=== PATIENT | male | born 1935 | race Caucasian/White ===

== ENCOUNTER 2016-08-09 08:08 | Day surgery (SDC) | payer MEDICARE, BC ==
--- NOTE | 2016-08-08 12:52 | PCM.PREANE ---
Preanesthetic Assessment - ANESTHESIA/TRANSFUSION/FAMILY HX Anesthesia/Transfusion History: Prior Anesthesia Family History of Anesthesia Reaction: No - REVIEW OF SYSTEMS Constitutional: Reports: no symptoms ONLINE BANKING SPECIALIST: Reports: no symptoms Respiratory: Reports: no symptoms Cardiovascular: Reports: no symptoms GI: Reports: no symptoms Other: Reports: none - PHYSICAL ASSESSMENT Height: 5 ft 11 in Weight: 81.193 kg ASA Class: 3 Mental Status: alert & oriented x3 Airway Class: Mallampati = 2 Dentition: Reports: missing tooth/teeth Thyro-Mental Finger Breadths: 3 Mouth Opening Finger Breadths: 3 ROM/Head Extension: full Respiratory Status: lungs clear to auscultation bilaterally Cardiovascular Status: normal S1, S2, no murmur, blood pressure WNL, irregular pulse - ALLERGIES Allergies/Adverse Reactions: Allergies Allergy/AdvReac Type Severity Reaction Status Date / Time No Known Allergies Allergy Verified 12/09/15 15:21 - ANESTHESIA PLAN Anesthesia Type Planned: MAC - ACKNOWLEDGEMENTS Pt an appropriate candidate for the planned anesthesia: Yes Alternatives and risks of anesthesia discussed w pt/guardian: Yes Pt/Guardian understands and agree with anesthesia plan: Yes PreAnesthesia Questionnaire HEENT History: Reports: Hard of hearing, Impaired vision, Other (see below) Other HEENT History: wears glasses, top and bottom denture, joe hearing aids Cardiovascular History: Reports: Hypertension, Other (see below) (Questionable Hx of A-fib and sick sinus syndrome. 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 over a few years.) Psychiatric History: Reports: Anxiety Endocrine/Metabolic History: Reports: None Hematologic History: Reports: None Immunologic History: Reports: None Oncologic (Cancer) History: Reports: Basal cell carcinoma Dermatologic History: Reports: None - Infectious Disease History Infectious Disease History: Reports: None - Past Surgical History Head Surgeries/Procedures: Reports: None GI Surgical History: Reports: Colonoscopy Other Male Surgeries/Procedures: hx prostate surgery Dermatological Surgical History: Reports: Skin biopsy - SUBSTANCE USE Smoking Status *Q: Former Smoker Tobacco Use Within Last Twelve Months: Cigarettes Recreational Drug Use History: No - HOME MEDS Home Medications: Home Meds Losartan/Hydrochlorothiazide [Losartan-HCTZ 100-25 MG] 1 tab PO ASDIRECTED 12/08 [History] amLODIPine [Norvasc] 1 tab PO ASDIRECTED 12/09/15 [History] clonazePAM [Clonazepam] 1 tab PO TID PRN 12/09/15 [History] Aspirin [[place] Aspirin] 81 mg PO ASDIRECTED 08/05/16 [History] Potassium Chloride [Klor-Con 10] 10 meq PO DAILY 08/05/16 [History] Zolpidem Tartrate 10 mg PO BEDTIME PRN 08/05/16 [History] - CURRENT (IN HOUSE) MEDS Current Meds: Current Medications Lactated Ringer's (Ringers, Lactated) 1,000 mls @ 125 mls/hr IV ASDIRECTED [facility]
[~2016-08-09 08:08] MED LIST: Lactated Ringers 1,000 ML IV SCH; Lidocaine 2% 5 ML SDV ONE; Propofol 200 MG/20 ML SDV ONE; fentaNYL 100 MCG/2 ML SDV ONE
[2016-08-09] MEDS ORDERED: Propofol 200 MG/20 ML SDV ONE (10:36)
[2016-08-09] MEDS ORDERED: Lactated Ringers 1,000 ML IV SCH (11:00)
--- NOTE | 2016-08-09 11:07 | PCM.OPNOTE ---
- General Post-Op/Procedure Note Date of Surgery/Procedure: 08/09/16 Operative Procedure(s): Colonoscopy with cold hepatic flexure polypectomy and cold rectal polypectomy Pre Op Diagnosis: Change in bowel habits. Post-Op Diagnosis: Hepatic flexure polyp. Rectal polyp. Sigmoid diverticulosis. Melanosis coli. Anesthesia Technique: MAC (ASA III) Primary Surgeon: Peng Durbin Operator Coating Furnace: Yaima Queen Condition: Good Free Text/Narrative:: Dictation [id number]
--- NOTE | 2016-08-09 11:19 | PCM.POSTAN ---
POST ANESTHESIA ASSESSMENT - MENTAL STATUS Mental Status: alert, oriented - RESPIRATORY Respiratory Status: respiratory rate WNL, airway patent, O2 saturation stable - CARDIOVASCULAR CV Status: pulse rate WNL, blood pressure stable - GASTROINTESTINAL GI Status: no symptoms - POST OP HYDRATION Hydration Status: adequate & stable
--- NOTE | 2016-08-09 11:20 | PCM48HPAN ---
Post Anesthesia Note - EVALUATION WITHIN 48HRS OF ANESTHETIC Vital Signs in Normal Range: Yes Patient Participated in Evaluation: Yes Respiratory Function Stable: Yes Airway Patent: Yes Cardiovascular Function Stable: Yes Hydration Status Stable: Yes Pain Control Satisfactory: Yes Nausea and Vomiting Control Satisfactory: Yes Mental Status Recovered: Yes
[2016-08-09 12:25] VITALS: BP 116/69
--- NOTE | 2016-08-10 06:24 | OR ---
SURGEON: Peng Durbin M.D. DATE OF PROCEDURE: 08/09/2016 OPERATION PERFORMED: Colonoscopy with cold hepatic flexure polypectomy and cold rectal polypectomy. MANAGER WIRELESS: Dr. Queen. ASA CLASSIFICATION: III. PREOPERATIVE DIAGNOSIS: Change in bowel habits. POSTOPERATIVE DIAGNOSES: 1. Hepatic flexure polyp. 2. Rectal polyp. 3. Small sigmoid diverticulosis. 4. Melanosis coli. DESCRIPTION OF PROCEDURE: The patient was taken to the endoscopy room and positioned on the endoscopy table in the left lateral decubitus position. Time-out was called for appropriate identification of patient and procedure. The colonoscope was inserted into the rectum and advanced with moderate difficulty to the cecum where the colonoscope was retroflexed to visualize the ascending colon from below. The colonoscope was then straightened and slowly withdrawn. One small polyp was encountered in the hepatic flexure and removed with the cold biopsy forceps. The transverse colon, splenic flexure, and descending colon showed no tumors, polyps, diverticula, or angiodysplastic changes. Sigmoid colon demonstrates numerous small diverticula, no stricture, spasm or bleeding was noted. Once the colonoscope was withdrawn to the rectum, it was retroflexed to visualize the anal orifice from above. Again, no tumors or polyps were seen. There were no acute hemorrhoidal changes. The colonoscope was then straightened, the rectum aspirated, and the colonoscope removed. The patient tolerated the procedure well and was taken to recovery room in stable condition. HERRERA PORTER /[id number]
== END 2016-08-09 11:48 | disposition home or self-care (01) ==
LOC: MW.SDS 08:08
PROVIDERS: ATTEND Surgery
DX: D12.3 Benign neoplasm of transverse colon (principal); D12.7 Benign neoplasm of rectosigmoid junction; K57.30 Diverticulosis of large intestine without perforation or abscess without bleeding; K63.89 Other specified diseases of intestine; Z79.82 Long term (current) use of aspirin; Z79.899 Other long term (current) drug therapy; I10 Essential (primary) hypertension; Z78.9 Other specified health status
CPT/HCPCS: 45380; 93005; J3010; J7120; 00810; 88305; J2704

== ENCOUNTER → 2016-08-19 | Outpatient (CLI) | payer MEDICARE, BC | LOC: MW.CHGS 08:00 | PROVIDERS: ATTEND Surgery | DX: D12.6 Benign neoplasm of colon, unspecified (principal); D12.8 Benign neoplasm of rectum | CPT/HCPCS: G0463 ==

== ENCOUNTER → 2016-09-21 | Outpatient (CLI) | payer MEDICARE, BC | LOC: MW.CHGS 08:00 | PROVIDERS: ATTEND Surgery | DX: R10.13 Epigastric pain (principal); R10.9 Unspecified abdominal pain; I10 Essential (primary) hypertension; K57.90 Diverticulosis of intestine, part unspecified, without perforation or abscess without bleeding | CPT/HCPCS: 99214 ==

== ENCOUNTER 2016-12-17 06:32 | Day surgery (SDC) | payer MEDICARE, BC ==
--- NOTE | 2016-12-17 07:05 | PCM.PREANE ---
Preanesthetic Assessment - Anesthesia/Transfusion/Family Hx Anesthesia History: Prior Anesthesia Without Reaction Family History of Anesthesia Reaction: No Transfusion History: No Prior Transfusion(s) Intubation History: Unknown - Review of Systems General: No Symptoms Pulmonary: No Symptoms Cardiovascular: No Symptoms Gastrointestinal: No symptoms Neurological: No Symptoms Other: Reports: None - Physical Assessment O2 Sat by Pulse Oximetry: 97 Respiratory Rate: 16 Vital Signs: Last Vital Signs Temp 36.1 C 12/17/16 06:51 Pulse 52 L 12/17/16 06:51 Resp 16 12/17/16 06:51 BP 140/73 12/17/16 06:51 Pulse Ox 97 12/17/16 06:51 Height: 1.8 m Weight: 83.007 kg ASA Class: 2 Mental Status: Alert & Oriented x3 Airway Class: Mallampati = 2 Dentition: Reports: Dentures (upper and lower) Thyro-Mental Finger Breadths: 3 Mouth Opening Finger Breadths: 3 ROM/Head Extension: Limited/Partial Lungs: Clear to auscultation, Normal respiratory effort Cardiovascular: Regular Rate, Regular Rhythm - Allergies Allergies/Adverse Reactions: Allergies Allergy/AdvReac Type Severity Reaction Status Date / Time No Known Allergies Allergy Verified 10/07/16 10:09 - Blood Blood Available: No - Anesthesia Plan Pre-Op Medication Ordered: None - Acknowledgements Anesthesia Type Planned: MAC Pt an Appropriate Candidate for the Planned Anesthesia: Yes Alternatives and Risks of Anesthesia Discussed w Pt/Guardian: Yes Pt/Guardian Understands and Agrees with Anesthesia Plan: Yes PreAnesthesia Questionnaire HEENT History: Reports: Hard of Hearing, Impaired Vision, Other (See Below) Other HEENT History: wears glasses, top and bottom denture, left hearing aid Cardiovascular History: Reports: Hypertension Respiratory History: Reports: Sleep Apnea Other Respiratory History: does not use CPAP Gastrointestinal History: Reports: Colon Polyp, GERD Other Gastrointestinal History: tubular adenoma of colon, tubular adenoma of rectum Genitourinary History: Reports: Prostate Disorder Musculoskeletal History: Reports: None Neurological History: Psychiatric History: Reports: Anxiety Endocrine/Metabolic History: Reports: None Hematologic History: Reports: None Immunologic History: Reports: None Oncologic (Cancer) History: Reports: Basal Cell Carcinoma Dermatologic History: Reports: None - Infectious Disease History Infectious Disease History: Reports: None - Past Surgical History Head Surgeries/Procedures: Reports: None GI Surgical History: Reports: Colonoscopy Male Surgical History: Reports: TURP-Transurethral Resection of Prostate Other Male Surgeries/Procedures: hx prostate surgery Dermatological Surgical History: Reports: Skin Biopsy - SUBSTANCE USE Smoking Status *Q: Former Smoker Tobacco Use Within Last Twelve Months: Cigarettes Recreational Drug Use History: No - HOME MEDS Home Medications: Home Meds Losartan/Hydrochlorothiazide [Losartan-HCTZ 100-25 MG] 1 tab PO ASDIRECTED 12/08 [History] amLODIPine [Norvasc] 5 mg PO ASDIRECTED 12/09/15 [History] clonazePAM [Clonazepam] 1 tab PO TID PRN 12/09/15 [History] Aspirin [[place] Aspirin] 81 mg PO ASDIRECTED 08/05/16 [History] Potassium Chloride [Klor-Con 10] 10 meq PO DAILY 08/05/16 [History] Zolpidem Tartrate 10 mg PO BEDTIME PRN 08/05/16 [History] Multivitamin [Multivitamins] 1 tab PO DAILY 09/23/16 [History] Ranitidine HCl [Heartburn Relief] 150 mg PO BID 09/23/16 [History] Cholecalciferol (Vitamin D3) [Vitamin D3] 1,000 units PO DAILY 12/13/16 [History ] - CURRENT (IN HOUSE) MEDS Current Meds: Current Medications Hydrocodone Bitart/Acetaminophen ([place] 325-5 Mg) 1 tab PO Q4H PRN PRN Reason: Pain Bupivacaine HCl/Epinephrine Bitart (Marcaine 0.25%/Epinephrine 1:200,000) 10 ml INJECT ONETIME ONE Stop: 12/17/16 08:01 Lactated Ringer's (Ringers, Lactated) 1,000 mls @ 125 mls/hr IV [facility]RECTED [facility] Cefazolin Sodium/Dextrose 2 gm (/ Premix) 50 mls @ 100 mls/hr IV ONETIME ONE Stop: 12/17/16 07:59 Tobramycin/Dexamethasone (Tobradex Ophth Oint) 0 gm EYEBOTH ONETIME ONE Stop: 12/17/16 07:31
[2016-12-17] MEDS ORDERED: Propofol 200 MG/20 ML SDV ONE (07:09)
[2016-12-17] MEDS ORDERED: Lidocaine 2% 5 ML SDV ONE (07:09)
[2016-12-17] MEDS ORDERED: diphenhydrAMINE 50 MG/ML SDV ONE (07:09)
[2016-12-17] MEDS ORDERED: Sodium Chloride 0.9% 20 ML ONE (07:13)
[2016-12-17] MEDS ORDERED: Lactated Ringers 1,000 ML IV SCH (07:15)
[2016-12-17] MEDS ORDERED: Lidocaine 1% 20 ML MDV ONE (07:22)
[2016-12-17] MEDS ORDERED: Bupivacaine 0.25%/EPINEPHrine 1:200,000 10 ML SDV ONE ×2 (07:22→09:06)
[2016-12-17] MEDS ORDERED: Octyl 2-Cyanoacrylate 1 Tube ONE (07:22)
[2016-12-17] MEDS ORDERED: Dexamethasone/Tobramycin 0.1-0.3% Ophth Oint 3.5 GM Tube ONE (07:22)
[2016-12-17] MEDS ORDERED: ceFAZolin 2 GM in Premix Bag 1 BAG IV ONE (07:30)
[2016-12-17] MEDS ORDERED: Dexamethasone/Tobramycin 0.1-0.3% Ophth Oint 3.5 GM Tube EYEBOTH ONE (07:30)
[2016-12-17] MEDS ORDERED: Bupivacaine 0.25%/EPINEPHrine 1:200,000 10 ML SDV INJECT ONE (08:00)
[2016-12-17] MEDS ORDERED: Acetaminophen/HYDROcodone 325-5 MG Tab PO PRN (08:00)
--- NOTE | 2016-12-17 09:46 | PCM48HPAN ---
Post Anesthesia Note - EVALUATION WITHIN 48HRS OF ANESTHETIC Vital Signs in Normal Range: Yes Patient Participated in Evaluation: Yes Respiratory Function Stable: Yes Airway Patent: Yes Cardiovascular Function Stable: Yes Hydration Status Stable: Yes Pain Control Satisfactory: Yes Nausea and Vomiting Control Satisfactory: Yes Mental Status Recovered: Yes - COMMENTS/OBSERVATIONS Free Text/Narrative:: no anesthesia problems. Patient skipped recovery room phase of postoperative care.
[2016-12-17 10:09] VITALS: BP 132/74
--- NOTE | 2016-12-17 15:10 | PCM.OPNOTE ---
- General Post-Op/Procedure Note Date of Surgery/Procedure: 12/17/16 Operative Procedure(s): bilateral brow lift and blepharoplasty for visual obstruction Pre Op Diagnosis: brow ptosis and dermatochamasis of both upper eyelids causing visual obstruction Post-Op Diagnosis: Same Anesthesia Technique: Local, MAC Primary Surgeon: Shahla Gilbert Bank Cashier: Melisa Persaud Complications: None Condition: Good
--- NOTE | 2016-12-22 12:59 | OR ---
SURGEON: BLANE PHILLIPS MD DATE OF PROCEDURE: 12/17/2016 PREOPERATIVE DIAGNOSIS: Brow ptosis and dermatochalasis of both upper eyelids causing visual obstruction. POSTOPERATIVE DIAGNOSIS: Brow ptosis and dermatochalasis of both upper eyelids causing visual obstruction. PROCEDURES: 1. Bilateral brow lift for brow ptosis. 2. Bilateral blepharoplasty of the upper lids for excess skin weighing down lids. ANESTHESIA: Local MAC. PHOTOGRAPHIC MACHINE OPERATOR: KODY Pulido INDICATIONS: Mr. Cr is an 81-year-old gentleman with visual obstruction from the descent of his brow and excess skin of the upper lids causing overhang and visual obstruction. His visual field exams demonstrates significant compromise. Risks and benefits of the treatment for both contributing problems were discussed with him and he was in agreement to proceed. Risks were including, but not limited to, bleeding, infection, damage to underlying or overlying structures, possible need for future interventions and possible scarring. PROCEDURE IN DETAIL: After informed consent was obtained and placed on the chart, the patient was brought to the operating theater and laid in the supine position. After adequate local MAC anesthetic was obtained, the area of the forehead was anesthetized and marked appropriately for 1 cm excision. Once adequately marked, the skin was anesthetized and the area was prepped and draped in normal fashion. A #15 blade was used to dissect through the skin and then Bovie electrocautery for hemostasis on the underlying tissues. Care was taken to protect the underlying neurovascular structures. The skin was excised and after meticulous hemostasis, the wound was approximated with deep 4-0 Monocryl stitches and a running 4-0 subcuticular for the skin. Meticulous approximation was completed and the wound was dressed with Steri-Strips. After this was completed, attention was then paid to the upper eyelids. There was still significant dermatochalasis. The area was marked in the standard fashion for a 1 cm excision of skin. The pinch test was completed to appreciate appropriate tension and closure of the eyelids after excision. Once the markings had been completed, local anesthesia was infiltrated into the area for hemostasis and pain control. Attention was then paid to dissection. A #15 blade was used to dissect through the skin of the upper eyelid and this was removed. Meticulous hemostasis was obtained using Bovie electrocautery for also contraction of the muscle. Once this was completed, the wound was closed using sparse deep Monocryl stitches and a running 6-0 Prolene for the skin. These were Steri-Striped in place. Once adequately closed and dressed, the upper eyelid incision was dressed with TobraDex. All counts and needles were correct at the end of the case. The patient tolerated the procedure well. FOLLOWUP INSTRUCTIONS: The patient will see us in clinic in approximately 1 week, sooner if any problems, questions, or concerns. HEALEXANDER / GERMAN /[id number] MTDD
== END 2016-12-17 10:00 | disposition home or self-care (01) ==
LOC: MW.SDS 06:32
PROVIDERS: ATTEND Plastic Surgery
PROC: 0W020ZZ Alteration of Face, Open Approach (ICD-10-PCS; principal; 2016-12-17)
PROC: 080PXZZ Alteration of Left Upper Eyelid, External Approach (ICD-10-PCS; 2016-12-17)
PROC: 080NXZZ Alteration of Right Upper Eyelid, External Approach (ICD-10-PCS; 2016-12-17)
DX: H02.403 Unspecified ptosis of bilateral eyelids (principal); H02.834 Dermatochalasis of left upper eyelid; H02.831 Dermatochalasis of right upper eyelid; I10 Essential (primary) hypertension; E87.6 Hypokalemia; K21.9 Gastro-esophageal reflux disease without esophagitis; F41.9 Anxiety disorder, unspecified; K59.09 Other constipation; E78.5 Hyperlipidemia, unspecified; Z87.891 Personal history of nicotine dependence; Z79.82 Long term (current) use of aspirin; Z79.899 Other long term (current) drug therapy
CPT/HCPCS: 15823; 67900; A9270; J1200; J7120; 00103; J2704

== ENCOUNTER 2017-07-11 11:30 | Day surgery (SDC) | payer MEDICARE, BC ==
[~2017-07-11 11:30] MED LIST changes: -fentaNYL 100 MCG/2 ML SDV ONE
--- NOTE | 2017-07-11 12:15 | PCM.PREANE ---
Preanesthetic Assessment - Anesthesia/Transfusion/Family Hx Anesthesia History: Prior Anesthesia Without Reaction Family History of Anesthesia Reaction: No Transfusion History: No Prior Transfusion(s) Intubation History: Unknown - Review of Systems General: No Symptoms Pulmonary: No Symptoms Cardiovascular: No Symptoms Neurological: No Symptoms Other: Reports: None - Physical Assessment NPO Status Date: 07/10/17 Height: 1.8 m Weight: 83.915 kg ASA Class: 2 Airway Class: Mallampati = 2 Dentition: Reports: Edentulous ROM/Head Extension: Full Lungs: Clear to Auscultation, Normal Respiratory Effort Cardiovascular: Regular Rate, Regular Rhythm - Allergies Allergies/Adverse Reactions: Allergies Allergy/AdvReac Type Severity Reaction Status Date / Time No Known Allergies Allergy Verified 07/06/17 12:29 - Acknowledgements Anesthesia Type Planned: MAC Pt an Appropriate Candidate for the Planned Anesthesia: Yes Alternatives and Risks of Anesthesia Discussed w Pt/Guardian: Yes Pt/Guardian Understands and Agrees with Anesthesia Plan: Yes PreAnesthesia Questionnaire HEENT History: Reports: Hard of Hearing, Impaired Vision, Other (See Below) Other HEENT History: wears glasses, top and bottom denture, left hearing aid Cardiovascular History: Reports: Hypertension Respiratory History: Reports: None Gastrointestinal History: Reports: Colon Polyp, GERD Other Gastrointestinal History: tubular adenoma of colon, tubular adenoma of rectum Genitourinary History: Reports: Prostate Disorder Musculoskeletal History: Reports: None Neurological History: Psychiatric History: Reports: Anxiety Endocrine/Metabolic History: Reports: None Hematologic History: Reports: None Immunologic History: Reports: None Oncologic (Cancer) History: Reports: Basal Cell Carcinoma Dermatologic History: Reports: None - Infectious Disease History Infectious Disease History: Reports: None - Past Surgical History Head Surgeries/Procedures: Reports: None GI Surgical History: Reports: Colonoscopy Male Surgical History: Reports: TURP-Transurethral Resection of Prostate Other Male Surgeries/Procedures: hx prostate surgery Dermatological Surgical History: Reports: Skin Biopsy - SUBSTANCE USE Smoking Status *Q: Former Smoker Tobacco Use Within Last Twelve Months: Cigarettes Recreational Drug Use History: No - HOME MEDS Home Medications: Home Meds Losartan/Hydrochlorothiazide [Losartan-HCTZ 100-25 MG] 1 tab PO ASDIRECTED 12/08 [History] amLODIPine [Norvasc] 5 mg PO DAILY 12/09/15 [History] clonazePAM [Clonazepam] 1 tab PO TID PRN 12/09/15 [History] Aspirin [[place] Aspirin] 81 mg PO ASDIRECTED 08/05/16 [History] Potassium Chloride [Klor-Con 10] 10 meq PO DAILY 08/05/16 [History] Zolpidem Tartrate 10 mg PO BEDTIME PRN 08/05/16 [History] Multivitamin [Multivitamins] 1 tab PO DAILY 09/23/16 [History] Cholecalciferol (Vitamin D3) [Vitamin D3] 1,000 units PO DAILY 12/13/16 [History ] Omeprazole 40 mg PO DAILY 07/06/17 [History] - CURRENT (IN HOUSE) MEDS Current Meds: Current Medications Lactated Ringer's (Ringers, Lactated) 1,000 mls @ 125 mls/hr IV ASDIRECTED [facility] Last Admin: 07/11/17 12:00 Dose: 125 mls/hr Discontinued Medications Lidocaine (Xylocaine-Mpf 2%) Confirm Administered Dose 5 ml .ROUTE .STK-MED ONE Stop: 07/11/17 11:07 Propofol (Diprivan 20 Ml) Confirm Administered Dose 200 mg .ROUTE .STK-MED ONE Stop: 07/11/17 11:07
[2017-07-11] MEDS ORDERED: Propofol 200 MG/20 ML SDV ONE (12:36)
[2017-07-11] MEDS ORDERED: Midazolam 1 MG/ML 2 ML SDV ONE (12:36)
[2017-07-11] MEDS ORDERED: Lactated Ringers 1,000 ML IV SCH (13:15)
--- NOTE | 2017-07-11 13:15 | PCM.POSTAN ---
POST ANESTHESIA ASSESSMENT - MENTAL STATUS Mental Status: Alert, Oriented - VITAL SIGNS Pulse Rate: 63 SaO2: 97 Resp Rate: 14 Blood Pressure: 102/58 - RESPIRATORY Respiratory Status: Respiratory Rate WNL, Airway Patent, O2 Saturation Stable - CARDIOVASCULAR CV Status: Pulse Rate WNL, Blood Pressure Stable - GASTROINTESTINAL GI Status: No Symptoms - PAIN Pain Score: 0 - POST OP HYDRATION Hydration Status: Adequate & Stable
--- NOTE | 2017-07-11 13:15 | PCM.OPNOTE ---
- General Post-Op/Procedure Note Date of Surgery/Procedure: 07/11/17 Operative Procedure(s): Esophagogastroduodenoscopy with duodenal, gastric and esophageal biopsies Pre Op Diagnosis: Epigastric pain. Intermittent tarry stools. Post-Op Diagnosis: Mild duodenitis, gastritis and esophagitis. No acute ulcerations. Anesthesia Technique: MAC (ASA II) Primary Surgeon: Peng Durbin Condition: Good Free Text/Narrative:: Dictation [id number] CPT CODE [id number]
[2017-07-11 14:13] VITALS: BP 112/66
--- NOTE | 2017-07-11 20:30 | OR ---
SURGEON: Peng Durbin M.D. DATE OF PROCEDURE: 07/11/2017 OPERATION PERFORMED: Esophagogastroduodenoscopy with duodenal, gastric, and esophageal biopsy. ANESTHESIA: MAC. ASA CLASSIFICATION: II. PREOPERATIVE DIAGNOSES: 1. Persistent epigastric pain. 2. Intermittent tarry stools. POSTOPERATIVE DIAGNOSES: 1. Mild duodenitis. 2. Mild gastritis. 3. Mild esophagitis. 4. No ulcerations noted anywhere. DESCRIPTION OF PROCEDURE: The patient was taken to the endoscopy room and positioned on the endoscopy table in the supine position. Time-out was called for appropriate identification of the patient and procedure. Monitored anesthesia care was provided. A bite block was placed between the patient's teeth. The gastroscope was inserted through the bite block into the oropharynx and advanced without difficulty through the esophagus and stomach into the duodenum where examination was carried out in a retrograde fashion. The duodenal bulb does show some mild- to-moderate inflammatory changes. Biopsies were obtained. No acute ulcerations were noted. The gastroscope was then withdrawn through the pylorus into the stomach, which also shows a very mild gastritis. Again, no acute ulcerations were noted. The gastroscope was retroflexed to visualize the proximal stomach. No tumors were noted proximally. No significant hiatal hernia was noted. The gastroscope was then withdrawn carefully visualizing the greater and lesser curvatures. Stomach was aspirated as the scope was withdrawn. The patient does have some mild inflammatory changes at the GE junction. Separate biopsies of this area were obtained. No acute ulcerations were noted. The esophagus demonstrated good contractility. No mid or proximal lesions were identified. The vocal cords were visualized as the scope was withdrawn and noted to move symmetrically. No vocal cord lesions were identified. The gastroscope was then removed with the patient having tolerated the procedure well. He was now taken to recovery room in stable condition. HERRERA / GERMAN /[id number]
== END 2017-07-11 13:38 | disposition home or self-care (01) ==
LOC: MW.SDS 11:30
PROVIDERS: ATTEND Surgery
DX: K29.50 Unspecified chronic gastritis without bleeding (principal); K29.80 Duodenitis without bleeding; K20.9 Esophagitis, unspecified; I10 Essential (primary) hypertension; K21.9 Gastro-esophageal reflux disease without esophagitis; F41.9 Anxiety disorder, unspecified; Z85.828 Personal history of other malignant neoplasm of skin; Z86.010 Personal history of colon polyps; Z79.899 Other long term (current) drug therapy; Z79.82 Long term (current) use of aspirin; Z98.890 Other specified postprocedural states
CPT/HCPCS: 43239; 88305; 88312; J2250; J7120; 00731; J2704

== ENCOUNTER 2018-09-11 09:14 | Day surgery (SDC) | payer MEDICARE, BC ==
[~2018-09-11 09:14] MED LIST changes: -Lidocaine 2% 5 ML SDV ONE; +fentaNYL 100 MCG/2 ML SDV ONE
--- NOTE | 2018-09-11 10:35 | PCM.PREANE ---
Preanesthetic Assessment - Anesthesia/Transfusion/Family Hx Anesthesia History: Prior Anesthesia Without Reaction Family History of Anesthesia Reaction: No Transfusion History: No Prior Transfusion(s) Intubation History: Unknown - Review of Systems General: No Symptoms Pulmonary: No Symptoms Cardiovascular: No Symptoms Neurological: No Symptoms Other: Reports: None - Physical Assessment NPO Status Date: 09/10/18 NPO Status Time: 23:00 O2 Sat by Pulse Oximetry: 96 Respiratory Rate: 16 Vital Signs: Last Vital Signs Temp 97.5 F 09/11/18 09:45 Pulse 60 09/11/18 09:45 Resp 16 09/11/18 09:45 BP 141/80 H 09/11/18 09:45 Pulse Ox 96 09/11/18 09:45 Height: 5 ft 10 in Weight: 83.461 kg ASA Class: 2 Mental Status: Alert & Oriented x3 Airway Class: Mallampati = 2 Dentition: Reports: Normal Dentition ROM/Head Extension: Full Lungs: Clear to Auscultation, Normal Respiratory Effort Cardiovascular: Regular Rate, Regular Rhythm - Allergies Allergies/Adverse Reactions: Allergies Allergy/AdvReac Type Severity Reaction Status Date / Time No Known Allergies Allergy Verified 09/06/18 13:03 - Blood Blood Available: No - Anesthesia Plan Pre-Op Medication Ordered: None - Acknowledgements Anesthesia Type Planned: General Anesthesia, MAC Pt an Appropriate Candidate for the Planned Anesthesia: Yes Alternatives and Risks of Anesthesia Discussed w Pt/Guardian: Yes Pt/Guardian Understands and Agrees with Anesthesia Plan: Yes Additional Comments: PMH: htn, anxiety PLAN: mac/tiva PreAnesthesia Questionnaire HEENT History: Reports: Hard of Hearing, Impaired Vision, Other (See Below) Other HEENT History: wears glasses, top and bottom denture, left hearing aid Cardiovascular History: Reports: Hypertension Respiratory History: Reports: None Gastrointestinal History: Reports: Colon Polyp, GERD Other Gastrointestinal History: tubular adenoma of colon, tubular adenoma of rectum Genitourinary History: Reports: Prostate Disorder Musculoskeletal History: Reports: None Neurological History: Reports: None Psychiatric History: Reports: Anxiety Endocrine/Metabolic History: Reports: None Hematologic History: Reports: None Immunologic History: Reports: None Oncologic (Cancer) History: Reports: Basal Cell Carcinoma Dermatologic History: Reports: None - Infectious Disease History Infectious Disease History: Reports: None - Past Surgical History Head Surgeries/Procedures: Reports: None GI Surgical History: Reports: Colonoscopy, EGD Male Surgical History: Reports: TURP-Transurethral Resection of Prostate Other Male Surgeries/Procedures: hx prostate surgery Neurological Surgical History: Reports: None Dermatological Surgical History: Reports: Skin Biopsy - SUBSTANCE USE Smoking Status *Q: Former Smoker Recreational Drug Use History: No - HOME MEDS Home Medications: Home Meds Losartan/Hydrochlorothiazide [Losartan-HCTZ 100-25 MG] 1 tab PO ASDIRECTED 12/08 [History] amLODIPine [Norvasc] 5 mg PO DAILY 12/09/15 [History] clonazePAM [Clonazepam] 1 tab PO TID PRN 12/09/15 [History] Aspirin [[place] Aspirin EC] 81 mg PO ASDIRECTED 08/05/16 [History] Potassium Chloride [Klor-Con 10] 10 meq PO DAILY 08/05/16 [History] Zolpidem Tartrate 10 mg PO BEDTIME PRN 08/05/16 [History] Multivitamin [Multivitamins] 1 tab PO DAILY 09/23/16 [History] Cholecalciferol (Vitamin D3) [Vitamin D3] 1,000 units PO DAILY 12/13/16 [History ] Omeprazole 40 mg PO DAILY 07/06/17 [History] - CURRENT (IN HOUSE) MEDS Current Meds: Current Medications Lactated Ringer's (Ringers, Lactated) 1,000 mls @ 125 mls/hr IV ASDIRECTED [facility] Last Admin: 09/11/18 10:07 Dose: 125 mls/hr Discontinued Medications Fentanyl (Sublimaze) Confirm Administered Dose 100 mcg .ROUTE .STK-MED ONE Stop: 09/11/18 07:36 Propofol (Diprivan 20 Ml) Confirm Administered Dose 200 mg .ROUTE .STK-MED ONE Stop: 09/11/18 07:35
[2018-09-11] MEDS ORDERED: Propofol 200 MG/20 ML SDV ONE (12:58)
--- NOTE | 2018-09-11 13:25 | PCM.OPNOTE ---
- General Post-Op/Procedure Note Date of Surgery/Procedure: 09/11/18 Operative Procedure(s): Esophagogastroduodenoscopy with biopsy Pre Op Diagnosis: Progressive abdominal pain Post-Op Diagnosis: Acute and chronic gastritis Anesthesia Technique: MAC (ASA II) Primary Surgeon: Peng Durbin Condition: Good Free Text/Narrative:: DICTATION [id number] CPT CODE [id number]
[2018-09-11] MEDS ORDERED: Lactated Ringers 1,000 ML IV SCH (13:30)
--- NOTE | 2018-09-11 14:13 | PCM.POSTAN ---
POST ANESTHESIA ASSESSMENT - MENTAL STATUS Mental Status: Alert, Oriented - RESPIRATORY Respiratory Status: Respiratory Rate WNL, Airway Patent, O2 Saturation Stable - CARDIOVASCULAR CV Status: Pulse Rate WNL, Blood Pressure Stable - GASTROINTESTINAL GI Status: No Symptoms - POST OP HYDRATION Hydration Status: Adequate & Stable
--- NOTE | 2018-09-11 14:13 | PCM48HPAN ---
Post Anesthesia Note - EVALUATION WITHIN 48HRS OF ANESTHETIC Vital Signs in Normal Range: Yes Patient Participated in Evaluation: Yes Respiratory Function Stable: Yes Airway Patent: Yes Cardiovascular Function Stable: Yes Hydration Status Stable: Yes Pain Control Satisfactory: Yes Nausea and Vomiting Control Satisfactory: Yes Mental Status Recovered: Yes Resp Rate: 16
[2018-09-11 15:19] VITALS: BP 143/77
--- NOTE | 2018-09-11 16:02 | OR ---
SURGEON: Peng Durbin M.D. DATE OF PROCEDURE: 09/11/2018 PROCEDURE PERFORMED: Esophagogastroduodenoscopy with biopsy. ANESTHESIA: MAC. ASA CLASSIFICATION: II. PREOPERATIVE DIAGNOSIS: Progressive epigastric pain. POSTOPERATIVE DIAGNOSIS: [id number] acute and chronic gastritis. DESCRIPTION OF PROCEDURE: The patient was taken to the endoscopy room and positioned on the endoscopy table in the supine position. Time-out was called for appropriate identification of the patient and procedure. Monitored anesthesia care was provided. The bite block was placed between the patient's teeth. The gastroscope was inserted through the bite block and advanced without difficulty through the esophagus and stomach into the duodenum, where examination was carried out in a retrograde fashion. The duodenum shows no acute inflammatory changes or ulcerations. Stomach does show [id number] acute gastritis. No ulcerations were noted. No tumors were noted. The antrum was biopsied to rule out the presence of Helicobacter pylori. The gastroscope was then retroflexed to visualize the stomach from below. The greater and lesser curvatures were well visualized and showed no tumors or polyps. No ulcerations were noted. The GE junction was well defined and shows no acute inflammatory changes. The gastroscope was then straightened, the stomach aspirated, and the gastroscope slowly withdrawn. The GE junction again was well defined and shows no acute inflammatory changes or ulcerations. The esophagus demonstrates poor contractility with tertiary contractions, but no significant longitudinal stripping waves. As the scope was withdrawn, the vocal cords were visualized and noted to move symmetrically. The gastroscope was then removed with the patient having tolerated the procedure well. He was taken to recovery room in a stable condition. HERRERA PORTER /[id number]
== END 2018-09-11 14:30 | disposition home or self-care (01) ==
LOC: MW.SDS 09:14
PROVIDERS: ATTEND Surgery
DX: K29.00 Acute gastritis without bleeding (principal); K29.50 Unspecified chronic gastritis without bleeding; K21.9 Gastro-esophageal reflux disease without esophagitis; I10 Essential (primary) hypertension; Z86.010 Personal history of colon polyps; Z87.891 Personal history of nicotine dependence; Z79.82 Long term (current) use of aspirin; Z79.899 Other long term (current) drug therapy
CPT/HCPCS: 43239; J2704; J7120; J3010

== ENCOUNTER 2019-07-20 07:39 | Day surgery (SDC) | payer MEDICARE, BC ==
[~2019-07-20 07:39] MED LIST changes: -Propofol 200 MG/20 ML SDV ONE; -fentaNYL 100 MCG/2 ML SDV ONE
--- NOTE | 2019-07-20 08:52 | PCM.PREANE ---
Preanesthetic Assessment - Anesthesia/Transfusion/Family Hx Anesthesia History: Prior Anesthesia Without Reaction Family History of Anesthesia Reaction: No Transfusion History: No Prior Transfusion(s) Intubation History: Unknown - Physical Assessment NPO Status Date: 07/19/19 Vital Signs: Last Vital Signs Temp 97.9 F 07/20/19 07:59 Pulse 70 07/20/19 07:59 Resp 16 07/20/19 07:59 BP 148/79 H 07/20/19 07:59 Pulse Ox 97 07/20/19 07:59 Height: 5 ft 10 in Weight: 73.482 kg ASA Class: 2 Mental Status: Alert & Oriented x3 Airway Class: Mallampati = 2 Dentition: Reports: Dentures (full, upper and lower) ROM/Head Extension: Limited/Partial Lungs: Clear to Auscultation, Normal Respiratory Effort Cardiovascular: Regular Rate, Regular Rhythm - Allergies Allergies/Adverse Reactions: Allergies Allergy/AdvReac Type Severity Reaction Status Date / Time No Known Allergies Allergy Verified 07/20/19 08:10 - Blood Blood Available: No - Anesthesia Plan Pre-Op Medication Ordered: None - Acknowledgements Anesthesia Type Planned: General Anesthesia Pt an Appropriate Candidate for the Planned Anesthesia: Yes Alternatives and Risks of Anesthesia Discussed w Pt/Guardian: Yes Pt/Guardian Understands and Agrees with Anesthesia Plan: Yes Additional Comments: PMH: htn, frailty PLAN: tiva PreAnesthesia Questionnaire HEENT History: Reports: Hard of Hearing, Impaired Vision, Other (See Below) Other HEENT History: wears glasses, top and bottom denture, left hearing aid Cardiovascular History: Reports: Hypertension Respiratory History: Reports: None Gastrointestinal History: Reports: Colon Polyp, GERD Other Gastrointestinal History: tubular adenoma of colon, tubular adenoma of rectum, GERD in the past Genitourinary History: Reports: Prostate Disorder Musculoskeletal History: Reports: None Neurological History: Reports: None Psychiatric History: Reports: Anxiety Endocrine/Metabolic History: Reports: None Hematologic History: Reports: None Immunologic History: Reports: None Oncologic (Cancer) History: Reports: Basal Cell Carcinoma Dermatologic History: Reports: None - Infectious Disease History Infectious Disease History: Reports: None - Past Surgical History Head Surgeries/Procedures: Reports: None Cardiovascular Surgical History: Reports: None Respiratory Surgical History: Reports: None GI Surgical History: Reports: Colonoscopy, EGD Male Surgical History: Reports: TURP-Transurethral Resection of Prostate Other Male Surgeries/Procedures: hx prostate surgery Endocrine Surgical History: Reports: None Neurological Surgical History: Reports: None Musculoskeletal Surgical History: Reports: None Oncologic Surgical History: Reports: None Dermatological Surgical History: Reports: Skin Biopsy - SUBSTANCE USE Smoking Status *Q: Current Every Day Smoker Tobacco Use Within Last Twelve Months: Cigarettes Recreational Drug Use History: No - HOME MEDS Home Medications: Home Meds Losartan/Hydrochlorothiazide [Losartan-HCTZ 100-25 MG] 1 tab PO DAILY 12/09/15 [ History] amLODIPine [Norvasc] 5 mg PO DAILY 12/09/15 [History] clonazePAM [Clonazepam] 1 tab PO TID PRN 12/09/15 [History] Aspirin [[place] Aspirin EC] 81 mg PO ASDIRECTED 08/05/16 [History] Potassium Chloride [Klor-Con 10] 10 meq PO DAILY 08/05/16 [History] Multivitamin [Multivitamins] 1 tab PO DAILY 09/23/16 [History] Cholecalciferol (Vitamin D3) [Vitamin D3] 1,000 units PO DAILY 12/13/16 [History ] Sildenafil Citrate 3 - 5 tab PO ASDIRECTED PRN 07/13/19 [History] - CURRENT (IN HOUSE) MEDS Current Meds: Current Medications Lactated Ringer's (Ringers, Lactated) 1,000 mls @ 125 mls/hr IV ASDIRECTED [facility] Last Admin: 07/20/19 08:03 Dose: 125 mls/hr
[2019-07-20] MEDS ORDERED: Lidocaine 2% 5 ML SDV ONE (08:57)
[2019-07-20] MEDS ORDERED: Propofol 200 MG/20 ML SDV ONE (08:57)
--- NOTE | 2019-07-20 09:42 | PCM.OPNOTE ---
- General Post-Op/Procedure Note Date of Surgery/Procedure: 07/20/19 Operative Procedure(s): Colonoscopy Pre Op Diagnosis: Change in bowel habits. Weight loss. Abdominal pain. Personal history of colon polyps. Post-Op Diagnosis: Sigmoid diverticulosis Anesthesia Technique: MAC (ASA II) Primary Surgeon: Peng Durbin Condition: Good Free Text/Narrative:: DICTATION [id number] CPT CODE 03605
[2019-07-20] MEDS ORDERED: Lactated Ringers 1,000 ML IV SCH (09:45)
--- NOTE | 2019-07-20 09:59 | PCM.POSTAN ---
POST ANESTHESIA ASSESSMENT - MENTAL STATUS Mental Status: Alert, Oriented - VITAL SIGNS Vital Signs: Last Vital Signs Temp 97.9 F 07/20/19 07:59 Pulse 64 07/20/19 09:45 Resp 22 H 07/20/19 09:45 BP 108/60 07/20/19 09:45 Pulse Ox 100 07/20/19 09:45 - RESPIRATORY Respiratory Status: Respiratory Rate WNL, Airway Patent, O2 Saturation Stable - CARDIOVASCULAR CV Status: Pulse Rate WNL, Blood Pressure Stable - GASTROINTESTINAL GI Status: No Symptoms - PAIN Pain Score: 0 - POST OP HYDRATION Hydration Status: Adequate & Stable
--- NOTE | 2019-07-20 11:20 | PCM48HPAN ---
Post Anesthesia Note - EVALUATION WITHIN 48HRS OF ANESTHETIC Vital Signs in Normal Range: Yes Patient Participated in Evaluation: Yes Respiratory Function Stable: Yes Airway Patent: Yes Cardiovascular Function Stable: Yes Hydration Status Stable: Yes Pain Control Satisfactory: Yes Nausea and Vomiting Control Satisfactory: Yes Mental Status Recovered: Yes Vital Signs: Last Vital Signs Temp 97.9 F 07/20/19 07:59 Pulse 64 07/20/19 09:45 Resp 22 H 07/20/19 09:45 BP 108/60 07/20/19 09:45 Pulse Ox 100 07/20/19 09:45
[2019-07-20 12:37] VITALS: BP 125/76; PULSE 66
--- NOTE | 2019-07-20 13:24 | OR ---
SURGEON: Peng Durbin M.D. DATE OF PROCEDURE: 07/20/2019 OPERATION PERFORMED: Colonoscopy. PRIMARY SURGEON: Peng Durbin MD. ANESTHESIA: MAC. ASA CLASSIFICATION: II. PREOPERATIVE DIAGNOSES: 1. Change in bowel habits. 2. Unexplained weight loss. 3. Abdominal pain. 4. Personal history of colon polyps. POSTOPERATIVE DIAGNOSIS: Sigmoid diverticulosis. DESCRIPTION OF PROCEDURE: The patient was taken to the endoscopy room and positioned on the endoscopy table in the left lateral decubitus position. Time-out was called for appropriate identification of the patient and procedure. Monitored anesthesia care was provided. The colonoscope was inserted into the rectum and advanced with moderate difficulty to the cecum where the colonoscope was retroflexed to visualize the ascending colon from below. The colonoscope was then straightened and slowly withdrawn. The cecum, ascending colon, hepatic flexure, transverse colon, splenic flexure, and descending colon showed no tumors, polyps, diverticula, or angiodysplastic changes. The sigmoid colon demonstrated moderate diverticular change. No stricture, spasm, or bleeding was noted. No polyps were encountered. The colonoscope was then withdrawn to the rectum and retroflexed to visualize the anal orifice from above. Again, no tumors or polyps were seen. There were no acute hemorrhoidal changes. The colonoscope was then straightened, the rectum aspirated, and the colonoscope removed. The patient tolerated the procedure well and was taken to recovery room in stable condition. HERRERA / GERMAN /[id number]
== END 2019-07-20 10:42 | disposition home or self-care (01) ==
LOC: MW.SDS 07:39
PROVIDERS: ATTEND Surgery
DX: K57.30 Diverticulosis of large intestine without perforation or abscess without bleeding (principal); R63.4 Abnormal weight loss; K21.9 Gastro-esophageal reflux disease without esophagitis; I10 Essential (primary) hypertension; F17.210 Nicotine dependence, cigarettes, uncomplicated; Z86.010 Personal history of colon polyps; Z79.899 Other long term (current) drug therapy; Z79.82 Long term (current) use of aspirin; Z98.890 Other specified postprocedural states
CPT/HCPCS: 45378; J2001; J2704; J7120

== ENCOUNTER 2023-04-27 15:53 | Emergency (ER) | payer MEDICARE, BC ==
[2023-04-27] MEDS ORDERED: Sodium Chloride 0.9% 2.5 ML Syringe FLUSH PRN (16:03)
[2023-04-27] MEDS ORDERED: Sodium Chloride 0.9% 10 ML Syringe FLUSH PRN (16:03)
[2023-04-27 16:12] LABS: BASOPHILS ABSOLUTE AUTO 0.02 K/uL (0.00-0.20); BASOPHILS PERCENT AUTO 0.2 % (0.0-1.0); EOSINOPHILS ABSOLUTE AUTO 0.27 K/uL (0.00-0.45); EOSINOPHILS PERCENT AUTO 3.1 % (0.0-6.0); HEMATOCRIT 40.9 % (42.0-52.0); HEMOGLOBIN 13.7 g/dL (14.0-18.0); IMMATURE GRAN ABSOLUTE AUTO 0.02 K/uL (0.00-0.05); IMMATURE GRAN PERCENT AUTO 0.2 % (0.0-0.4); LYMPHOCYTES ABSOLUTE AUTO 1.55 K/uL (1.00-4.80); LYMPHOCYTES PERCENT AUTO 17.6 % (24.0-44.0); MEAN CORPUSCULAR HEMOGLOBIN 30.7 pg (28.0-32.0); MEAN CORPUSCULAR HGB CONC 33.5 g/dL (32.0-36.0); MEAN CORPUSCULAR VOLUME 91.7 fL (83.0-99.0); MEAN PLATELET VOLUME 11.2 fL (9.4-12.4); MONOCYTES ABSOLUTE AUTO 0.69 K/uL (0.00-0.80); MONOCYTES PERCENT AUTO 7.8 % (0.0-8.0); NEUTROPHILS ABSOLUTE AUTO 6.24 K/uL (1.80-7.70); NEUTROPHILS PERCENT AUTO 71.1 % (41.0-71.0); PLATELET COUNT,PLT 149 K/uL (150-400); RED BLOOD CELL COUNT 4.46 M/uL (4.52-5.90); WHITE BLOOD CELL COUNT,WBC 8.79 K/uL (3.9-11.3)
[2023-04-27 16:34] LABS: INR 1.05 (0.86-1.11); PTT,PARTIAL THROMBOPLSTIN TIME 27.6 SEC (23.9-30.7)
[2023-04-27 16:36] LABS: A/G RATIO 1.1 (0.9-1.6); ALBUMIN 3.7 g/dL (3.4-5.0); BILIRUBIN TOTAL 0.5 mg/dL (0.2-1.0); CALCIUM 9.4 mg/dL (8.5-10.1); CREATININE 1.1 mg/dL (0.8-1.3); EST CRCL DRUG DOSING (CG) 46.64 mL/min; POTASSIUM,K 3.5 mmol/L (3.5-5.1); PROTEIN TOTAL,TP 7.2 g/dL (6.4-8.2)
[2023-04-27 17:03] LABS: LACTIC ACID 1.4 mmol/L (0.4-2.0)
[2023-04-27 17:08] LABS: CORONAVIRUS COVID-19 NAA NEGATIVE (NEGATIVE); INFLUENZA A NAA NEGATIVE (NEGATIVE); INFLUENZA B NAA NEGATIVE (NEGATIVE)
[2023-04-27 18:48] VITALS: PULSE 71
[2023-04-27 19:49] VITALS: BP 160/93
== END 2023-04-27 19:49 | disposition home or self-care (01) ==
LOC: MW.ED 15:53
DX: I71.40 Abdominal aortic aneurysm, without rupture, unspecified (principal); I10 Essential (primary) hypertension; Z79.82 Long term (current) use of aspirin; Z79.899 Other long term (current) drug therapy; Z20.822 Contact with and (suspected) exposure to COVID-19
CPT/HCPCS: 0240U; 36415; 71045; 80053; 83605; 83690; 84484; 85025; 85610; 85730; 86850; 86900; 86901; 99284; J3490; 99283